=== PATIENT | female | born 1965 | race Hispanic/Latino ===

== ENCOUNTER 2024-06-05 17:03 | Emergency (ER) | payer SELFPAY ==
[~2024-06-05] VITALS: Ht 157.5 cm; Wt 68.0 kg
--- NOTE | 2024-06-05 17:08 | ERN ---
ED Note History of Present Illness Stated Complaint: ABD PAIN Chief Complaint: Abdominal Pain Time Seen by MD: 17:04 Dictation: Patient is a 58-year-old female coming in today with complaints of having epigastric and right upper quadrant pain tenderness she has had for several days. No nausea vomiting no fever no chills no chest pain no back pain. Patient had a CD from a CT that was done at another facility with her and was told she had a hernia and a possible pulmonary lesion. She states she has an appointment next week with the surgeon and the city letter carrier however came in today because she just wanted a 2nd opinion. I asked her if she would have been given anything by her doctor prior to arrival for pain and she told me no. Allergies: Coded Allergies: No Known Drug Allergies (Unverified Allergy, Unknown, 06/05/24) Past Medical History PSYCH History: no pertinent psych hx History: Not Applicable RN Note Reviewed/Agreed w/PFSH: Yes Review of System Dictation CONSTITUTIONAL: Negative except for HPI HEAD/FACE: Negative except for HPI EENT: Negative except for HPI RESPIRATORY: Negative except for HPI GASTROINTESTINAL/ABDOMINAL: Negative except for HPI epigastric and right upper quadrant pain tenderness GENITOURINARY: Negative except for HPI MUSCULOSKELETAL: Negative except for HPI INTEGUMENTARY: Negative except for HPI NEUROLOGICAL/PSYCH: Negative except for HPI HEMATOLOGIC/LYMPHATIC: Negative except for HPI All Systems Negative, Except as noted above. 13 point review of systems assessed and all negative except for above. Initial Vital Sign VS Vital Signs Date Time Temp Pulse Resp B/P (MAP) Pulse Ox O2 Delivery O2 Flow Rate FiO2 06/05/24 17:04 98.1 74 18 138/98 97 06/05/24 17:33 Room Air* 0 21 Physical Exam Dictation Vital Signs reviewed General Appearance: Alert, oriented x 3, my acute distress, well developed, nourished. Head and Face: non-traumatic. Eyes: PERRL, pink conjunctivas, eyelid no trauma, anterior chamber with arcus senilis. Ears: Pinnas intact and no signs of trauma or erythema ear canals clear and no discharge TM no erythema Nose: No discharge, no bleeding. Oropharynx: Mouth normal, tongue pink, pharynx clear,no erythema, tonsils no exudates, no abscesses noted, mucous membrane moist Neck: Supple, non-tender, no thyromegaly, no masses, no JVD, no bruits Breast:Deferred Chest:No tenderness, no crepitus, no paradoxical movement, no retractions Lungs:Clear, well-ventilated, symmetric, no rales, no wheezing, no rhonchi, no stridor, good breath sounds bilaterally Heart: Regular rate, regular rhythm, no murmur, no gallops Vascular: no peripheral edema, Abdomen: Soft, positive bowel sounds, nondistended, no guarding, Mild epigastric tenderness with palpation, no rebound, no masses no hepatomegaly, no splenomegaly, no Gonzalez's sign, no hernias. Negative Gonzalez's Rectal: Deferred Genital: Deferred Neurological: Normal speech, motor function intact, sensory function intact Musculoskeletal: Neck nontender, full range of motion, back nontender, full range of motion, Extremities: nontender, full range of motion Skin: Color pink, dry, no turgor, no rash, no lacerations, no abrasions, no contusions. Lymphatic: Deferred Results (Laboratory/Radiology) Laboratory/Radiology Laboratory Tests Test 06/05/24 17:28 White Blood Count 6.0 K/uL (4.8-10.8) Red Blood Count 4.81 MIL/uL (4.00-5.50) Hemoglobin 14.9 g/dL (12.0-16.0) Hematocrit 43.3 % (36-48) Mean Corpuscular Volume 90.0 fL (79-99) Mean Corpuscular Hemoglobin 31.0 pg (27.0-33.0) Mean Corpuscular Hemoglobin Concent 34.4 g/dL (32.0-36.0) Red Cell Distribution Width 11.4 % (11.0-15.5) Platelet Count 168 K/uL (130-400) Mean Platelet Volume 12.0 fL (7.5-10.5) H Immature Granulocyte % (Auto) 0.2 % (0-1) Neutrophils (%) (Auto) 55.9 % (40.0-77.0) Lymphocytes (%) (Auto) 34.4 % (21.0-51.0) Monocytes (%) (Auto) 7.0 % (3.0-13.0) Eosinophils (%) (Auto) 2.2 % (0.0-8.0) Basophils (%) (Auto) 0.3 % (0.0-5.0) Neutrophils # (Auto) 3.4 K/uL (1.8-7.7) Lymphocytes # (Auto) 2.1 K/uL (1.0-4.8) Monocytes # (Auto) 0.4 K/uL (0.1-1.0) Eosinophils # (Auto) 0.13 K/uL (0.00-0.70) Basophils # (Auto) 0.02 K/uL (0.00-0.20) Absolute Immature Granulocyte (auto 0.01 K/uL (0-1) Nucleated Red Blood Cells 0.0 % (0.0-0.19) Urine Color COLORLESS (YELLOW) Urine Appearance CLEAR (CLEAR) Urine pH 5.5 (5.0-8.0) Urine Specific [place] 1.007 (1.001-1.031) Urine Protein NEGATIVE mg/dL (NEGATIVE) Urine Glucose (UA) NEGATIVE mg/dL (NEGATIVE) Urine Ketones NEGATIVE mg/dL (NEGATIVE) Urine Occult Blood NEGATIVE (NEGATIVE) Urine Nitrate NEGATIVE (NEGATIVE) Urine Bilirubin NEGATIVE mg/dL (NEGATIVE) Urine Urobilinogen 0.2 mg/dL (0.2-1.0) Urine Leukocyte Esterase 250 Demetri/uL (NEGATIVE) H Urine RBC 0-1 /HPF (0-1) Urine WBC 6-10 /HPF (0-1) H Urine Squamous Epithelial Cells FEW /HPF (0-2) Urine Bacteria RARE /HPF (None Seen) Sodium Level 145 mmol/L (136-145) Potassium Level 3.9 mmol/L (3.5-5.1) Chloride Level 107 mmol/L (101-111) Carbon Dioxide Level 30 mmol/L (21-32) Blood Urea Nitrogen 15 mg/dL (7-18) Creatinine 0.8 mg/dL (0.5-1.0) Glomerular Filtration Rate Calc 86 mL/min (>90) Random Glucose 85 mg/dL (70-105) Total Calcium 9.0 mg/dL (8.5-10.1) Lipase 52 U/L (16-77) Labs Reviewed?: Yes ED Course ED Course Orders Procedure Category Date Status Time Cbc With Differential LAB 06/05/24 Complete 17:05 0.9%Nacl 1000ml (Ns PHA 06/05/24 Complete 1000ml) 17:30 Ketorolac PHA 06/05/24 Complete Tromethamine 30mg/Ml 17:30 Lipase LAB 06/05/24 Complete 17:05 Basic Metabolic Panel LAB 06/05/24 Complete 17:05 Urinalysis Profile LAB 06/05/24 Complete 17:05 Famotidine 20mg Vial PHA 06/05/24 Complete (Pepcid 20mg Vial) 17:30 Culture Urine SO 06/05/24 In Process 17:38 Amox/Clav 875/125mg PHA 06/05/24 Transmitted Tab (Augmentin 875-1 18:30 Current Medications Medications (Trade) Dose Ordered Sig/Edgar Route PRN Reason Start Time Stop Time Status Last Admin Dose Admin Famotidine (Pepcid 20mg Vial) 20 mg ONCE ONCE IV 06/05/24 17:30 06/05/24 17:31 DC 06/05/24 17:43 Ketorolac Tromethamine (toRADol) 30 mg ONCE ONCE IVP 06/05/24 17:30 06/05/24 17:31 DC 06/05/24 17:43 Sodium Chloride 1,000 ml @ 0 mls/hr ONCE ONCE IV 06/05/24 17:30 06/05/24 17:31 DC 06/05/24 17:43 Vital Signs Date Time Temp Pulse Resp B/P (MAP) Pulse Ox O2 Delivery O2 Flow Rate FiO2 06/05/24 17:33 97.3 66 20 138/66 100 Room Air* 0 21 06/05/24 17:04 98.1 74 18 138/98 97 1825 PATIENT IN NO PAIN AT THIS TIME, LABS ARE NEGATIVE EXCEPT FOR ACUTE CYSTITIS. WE WILL TREAT WITH [id number] AND PATIENT WILL BE REFERRED BACK TO HER DOCTOR NEXT WEEK FOR FOLLOW UP. Medical Decision Making MDM MDM: DIFFERENTIAL DIAGNOSIS: ABDOMINAL PAIN/UTI/ELECTROLYTE IMBALANCE/DEHYDRA TION/GASTRITIS/PANCREATITIS RATIONALE: TESTS CONSIDERED AND ORDERED SECONDARY TO SHARED DECISION MAKING INCLUDE: LABS PREVIOUS OUTSIDE RECORDS REVIEWED: OLD ER VISITS. REVIEWED RISK OF COMPLICATION AND/OR MORBIDITY OR MORTALITY OF PATIENT MANAGEMENT: NONE MEDICATIONS-PER MEDICATION RECONCILIATION NO NEED FOR HOSPITALIZATION: PATIENT DOES NOT MEET CRITERIA FOR HOSPITALIZATION. NO NEED FOR EMERGENCY MAJOR/MINOR SURGERY: NO THERE ARE NO SOCIAL CONCERNS WITH THIS PATIENT. PRESCRIPTION DRUG MANAGEMENT AUGMENTIN 875 PRESCRIPTIONS WILL INCLUDE SYMPTOMATIC CARE PATIENT'S PRIOR EXTERNAL MEDICAL RECORDS FROM OTHER ER VISITS WERE REVIEWED BY ME INDICATED. PRIOR TESTING AND RESULTS FROM PREVIOUS VISITS WERE REVIEWED. PRIOR TESTS WERE TAKEN INTO ACCOUNT WITH MEDICAL DECISION MAKING AND RESOURCE UTILIZATION, INDEPENDENT HISTORIAN/HISTORIANS WERE USED TO OBTAIN COMPLETE MEDICAL HISTORY. I INDEPENDENTLY INTERPRETED THE TEST THAT WERE PERFORMED, RESULTS WERE REVIEWED BY ME AND CONSIDERED FINDINGS ON RADIOLOGY IF ORDERED. MEDICAL MANAGEMENT AND EXAMINATION INTERPRETATION DISCUSSIONS WERE HAD BY ME WITH OTHER QUALIFIED HEALTHCARE PROFESSIONALS INDICATED FOR THE PATIENT'S CARE. DX & DISP Disposition: Discharge Departure Impression: Primary Impression: Acute cystitis Additional Impression: Abdominal pain Condition: Stable Scripts Ibuprofen (Ibuprofen) 600 Mg Tablet 600 MG PO Q6H PRN for PAIN, #30 TAB Prov: SAIRA BARBOZA NP 06/05/24 Amoxicillin/Potassium Clav (Amox Tr-K Clv 875-125 mg Tab) 875 Mg-125 Mg Tablet 1 EACH PO BID for 5 Days, #10 TAB 0 Refills Prov: SAIRA BARBOZA NP 06/05/24 Additional Instructions: FOLLOW-UP WITH PRIMARY CARE PROVIDER IN 1 TO 2 DAYS. TAKE MEDICATIONS DIREC JOANIE HERE IN THE EMERGENCY ROOM. OKAY TO CONTINUE HOME MEDICATIONS UNLESS OTHERWISE DISCUSSED DURING YOUR VISIT IN THE EMERGENCY ROOM TODAY. RETURN TO YOUR NEAREST EMERGENCY ROOM IF SYMPTOMS WORSEN OR IF THERE IS NO IMPROVEMENT. CALL 911 IF YOU NEED IMMEDIATE ASSISTANCE. TAKE TYLENOL OR MOTRIN [id number] NEEDED AND IF NO CONTRAINDICATIONS ARE PRESENT. INCREASE ORAL HYDRATION. A WOUND CULTURE OR URINE CULTURE WAS ORDERED HERE IN THE EMERGENCY ROOM DEPARTMENT PLEASE FOLLOW-UP WITH PRIMARY CARE PROVIDER AND ADVISE THEM TO GET REPEAT PORTS FROM OUR FACILITY. IF YOU HAD ANY DIANNA WRAP/SPLINTS THAT WERE APPLIED HERE, PLEASE DO NOT REMOVE THEM UNTIL YOU SEE YOUR PRIMARY CARE OR SPECIALTY. TAKE ANTIBIOTICS DIRECTED UNTIL GONE. INCREASE YOUR WATER INTAKE. AND FOLLOW UP WITH YOUR PRIMARY CARE DOCTOR NEXT WEEK. Referrals: ELKE BYRNE DO (PCP) Time of Disposition: 18:29 I have reviewed the case, and I agree with, Diagnosis and Plan SAIRA BARBOZA NP Jun 05, 2024 17:08
[2024-06-05 17:35] LABS: BASOPHILS # (AUTO) 0.02 K/uL (0.00-0.20); BASOPHILS % (AUTO) 0.3 % (0.0-5.0); EOSINOPHILS # (AUTO) 0.13 K/uL (0.00-0.70); EOSINOPHILS % (AUTO) 2.2 % (0.0-8.0); HEMATOCRIT 43.3 % (36-48); IMMATURE GRANULOCYTE ABSOLUTE 0.01 K/uL (0-1); LYMPHOCYTES # (AUTO) 2.1 K/uL (1.0-4.8); LYMPHOCYTES % (AUTO) 34.4 % (21.0-51.0); MEAN CORPUSCULAR HGB CONC 34.4 g/dL (32.0-36.0); MONOCYTES # (AUTO) 0.4 K/uL (0.1-1.0); NEUTROPHILS # (AUTO) 3.4 K/uL (1.8-7.7); NEUTROPHILS % (AUTO) 55.9 % (40.0-77.0); PLATELET COUNT (AUTO) 168 K/uL (130-400); RED BLOOD CELL COUNT(AUTO) 4.81 MIL/uL (4.00-5.50); RED CELL DISTRIBUTION WIDTH 11.4 % (11.0-15.5)
[2024-06-05 17:36] LABS: APPEARANCE,URINE CLEAR (CLEAR); BILIRUBIN,URINE NEGATIVE (NEGATIVE); COLOR,URINE COLORLESS (YELLOW); GLUCOSE, URINE (UA) NEGATIVE (NEGATIVE); KETONES,URINE NEGATIVE (NEGATIVE); LEUKOCYTE ESTERASE ,URINE 250 Leu/uL (NEGATIVE); NITRATE,URINE NEGATIVE (NEGATIVE); OCCULT BLOOD,URINE NEGATIVE (NEGATIVE); PH,URINE 5.5 (5.0-8.0); PROTEIN,URINE NEGATIVE (NEGATIVE); UROBILINOGEN,URINE 0.2 mg/dL (0.2-1.0)
[2024-06-05 17:38] LABS: ADD UA MICROSCOPIC YES
[2024-06-05 17:39] LABS: BACTERIA,URINE RARE /HPF (None Seen); RBC,URINE 0-1 /HPF (0-1); SQUAMOUS EPITHELIAL CELL,UR FEW /HPF (0-2)
[2024-06-05 17:43] LABS: CREATININE 0.8 mg/dL (0.5-1.0); POTASSIUM 3.9 mmol/L (3.5-5.1)
[2024-06-05] MEDS: 0.9%NACL 1000ML 1,000 ML IV ONE (17:43)
[2024-06-05] MEDS: FAMOTIDINE 20MG VIAL IV ONE (17:43)
[2024-06-05] MEDS: ketOROlac 30MG VIAL (30MG/ML) IVP ONE (17:43)
[2024-06-05] MEDS ORDERED: IBUP-2070 PO (18:32)
[2024-06-05] MEDS ORDERED: AMOX1TAB16 PO (18:32)
[2024-06-05 18:38] VITALS: BP 132/74; PULSE 70; RESP 20; TEMP 97.4; O2SAT 100
[2024-06-05] MEDS: AMOX/CLAV 875/125MG TAB PO ONE (18:40)
== END 2024-06-05 18:56 | disposition home or self-care (01) ==
LOC: EDH 17:03
DX: N30.00 Acute cystitis without hematuria (principal)
CPT/HCPCS: 99284; 96374; 96361; 96375; 80048; 83690; 85025; 87086; 81001; 36415; J3490; J7030; J1885

== ENCOUNTER 2025-02-01 18:06 | Emergency (ER) | payer SELFPAY ==
[~2025-02-01] VITALS: Ht 152.4 cm; Wt 68.0 kg
[~2025-02-01 18:06] MED LIST: AMOX1TAB16 PO; IBUP-1492 PO
[2025-02-01 18:51] LABS: IMMATURE GRANULOCYTE ABSOLUTE 0.02 K/uL (0-1); NUCLEATED RED BLOOD CELLS 0.0 % (0.0-0.19); PLATELET COUNT (AUTO) 169 K/uL (130-400); RED BLOOD CELL COUNT(AUTO) 4.56 MIL/uL (4.00-5.50); RED CELL DISTRIBUTION WIDTH 11.6 % (11.0-15.5); WHITE BLOOD COUNT (AUTO) 5.8 K/uL (4.8-10.8)
[2025-02-01 19:04] LABS: CREATININE 0.7 mg/dL (0.5-1.0); GLOMERULAR FILTR. RATE CALC 101.0 mL/min (>90); GLUCOSE,RANDOM 94.0 mg/dL (70-105); SODIUM SERUM 142.0 mmol/L (136-145); UREA NITROGEN, BLOOD 12.0 mg/dL (7-18)
[2025-02-01 19:14] LABS: ASPARTATE AMINOTRANSFERASE 25.0 U/L (10-37); CREATINE KINASE, TOTAL 243.0 U/L (21-232); TOTAL PROTEIN, SERUM 6.8 g/dL (6.0-8.3)
[2025-02-01] MEDS ORDERED: IOHEXOL-350 75 ML VIAL IV ONE (19:32)
[2025-02-01] MEDS: 0.9%NACL 1000ML 1,000 ML IV ONE (19:54)
--- NOTE | 2025-02-01 19:57 | ERN ---
ED Note History of Present Illness Stated Complaint: UPPER ABD PAIN Chief Complaint: Abdominal Pain Time Seen by MD: 18:09 Time Seen by Midlevel: 18:09 Dictation: The patient is a 59-year-old female with a history of cholecystectomy, hypertension, diabetes, hysterectomy who presents to the emergency department with complaints of epigastric abdominal pain onset Saturday. Patient denies any nausea or vomiting, denies any diarrhea, denies any fevers. Reports he was seen by his primary doctor and told her her pancreas was inflamed. Allergies: Coded Allergies: No Known Drug Allergies (Unverified Allergy, Unknown, 06/05/24) Home Meds Active Scripts Ibuprofen (Ibuprofen) 600 Mg Tablet, 600 MG PO Q6H PRN for PAIN, #30 TAB Prov:SAIRA BARBOZA SPRING SETTER 06/05/24 Amoxicillin/Potassium Clav (Amox Tr-K Clv 875-125 mg Tab) 875 Mg-125 Mg Tablet, 1 EACH PO BID for 5 Days, #10 TAB 0 Refills Prov:SAIRA BARBOZA SPRING SETTER 06/05/24 Past Medical History Past Medical History: Diabetes-Type II, GERD, Hypertension, Other Additional Past Medical Hx: HERNIA Surgical History: Hysterectomy, Cholecystectomy, History: Not Applicable RN Note Reviewed/Agreed w/PFSH: Yes Review of System Dictation Constitutional: Negative for fever,chills, and weight loss Eyes: Negative for injury, pain,redness, and discharge ENT: Negative for injury,pain or swelling Cardiovascular: Negative for chest pain, palpitations, and edema Respiratory: Negative for shortness of breath, cough, and wheezing, Abdomen/GI: Negative for nausea, vomiting, diarrhea, and constipation positive for abdominal pain Back: Negative for injury and pain : Negative for injury, bleeding and discharge MS/Extremity: Negative for injury and deformity Skin: Negative for rash, and discoloration Neuro: Negative for headache, weakness, numbness, tingling, and seizure Psych: Negative for suicide ideation, homicidal ideation, and hallucinations Initial Vital Sign VS Vital Signs Date Time Temp Pulse Resp B/P (MAP) Pulse Ox O2 Delivery O2 Flow Rate FiO2 02/01/25 18:07 98.2 95 18 142/88 97 Room Air 0 02/01/25 19:48 21 Physical Exam Dictation Vital Signs reviewed General Appearance: Alert, oriented x 3, no acute distress, well developed, nourished. Head and Face: non-traumatic. Eyes: PERRL, pink conjunctivas, eyelid no trauma, anterior chamber with arcus senilis. Ears: Pinnas intact and no signs of trauma or erythema ear canals clear and no discharge TM no erythema Nose: No discharge, no bleeding. Oropharynx: Mouth normal, tongue pink. pharynx clear,no erythema, tonsils no exudates, no abscesses noted, mucous membrane moist Neck: Supple, non-tender, no thyromegaly, no masses, no JVD, no bruits Breast:Deferred Chest:No tenderness, no crepitus, no paradoxical movement, no retractions Lungs:Clear, well-ventilated, symmetric, no rales, no wheezing, no rhonchi, no stridor, good breath sounds bilaterally Heart: Regular rate, regular rhythm, no murmur, no gallops Vascular: no peripheral edema, Abdomen: Soft, positive bowel sounds, nondistended, no guarding, Epigastric, upper abdominal tenderness no rebound, no masses no hepatomegaly, no splenomegaly, no Gonzalez's sign, no hernias. Rectal: Deferred Genital: Deferred Neurological: Normal speech, motor function intact, sensory function intact Musculoskeletal: Neck nontender, full range of motion, back nontender, full range of motion, Extremities: nontender, full range of motion Skin: Color pink, dry, no turgor, no rash, no lacerations, no abrasions, no contusions. Lymphatic: Deferred Results (Laboratory/Radiology) Laboratory/Radiology Laboratory Tests Test 02/01/25 18:35 White Blood Count 5.8 K/uL (4.8-10.8) Red Blood Count 4.56 MIL/uL (4.00-5.50) Hemoglobin 14.0 g/dL (12.0-16.0) Hematocrit 40.9 % (36-48) Mean Corpuscular Volume 89.7 fL (79-99) Mean Corpuscular Hemoglobin 30.7 pg (27.0-33.0) Mean Corpuscular Hemoglobin Concent 34.2 g/dL (32.0-36.0) Red Cell Distribution Width 11.6 % (11.0-15.5) Platelet Count 169 K/uL (130-400) Mean Platelet Volume 11.8 fL (7.5-10.5) H Immature Granulocyte % (Auto) 0.3 % (0-1) Neutrophils (%) (Auto) 55.1 % (40.0-77.0) Lymphocytes (%) (Auto) 30.7 % (21.0-51.0) Monocytes (%) (Auto) 10.7 % (3.0-13.0) Eosinophils (%) (Auto) 2.9 % (0.0-8.0) Basophils (%) (Auto) 0.3 % (0.0-5.0) Neutrophils # (Auto) 3.2 K/uL (1.8-7.7) Lymphocytes # (Auto) 1.8 K/uL (1.0-4.8) Monocytes # (Auto) 0.6 K/uL (0.1-1.0) Eosinophils # (Auto) 0.17 K/uL (0.00-0.70) Basophils # (Auto) 0.02 K/uL (0.00-0.20) Absolute Immature Granulocyte (auto 0.02 K/uL (0-1) Nucleated Red Blood Cells 0.0 % (0.0-0.19) Sodium Level 142 mmol/L (136-145) Potassium Level 3.7 mmol/L (3.5-5.1) Chloride Level 107 mmol/L (101-111) Carbon Dioxide Level 31 mmol/L (21-32) Blood Urea Nitrogen 12 mg/dL (7-18) Creatinine 0.7 mg/dL (0.5-1.0) Glomerular Filtration Rate Calc 101 mL/min (>90) Random Glucose 94 mg/dL (70-105) Total Calcium 8.5 mg/dL (8.5-10.1) Total Bilirubin 1.0 mg/dL (0.2-1.0) Direct Bilirubin 0.2 mg/dL (0.0-0.3) Aspartate Amino Transf (AST/SGOT) 25 U/L (10-37) Alanine Aminotransferase (ALT/SGPT) 44 U/L (12-78) Alkaline Phosphatase 93 U/L (50-136) Total Creatine Kinase 243 U/L (21-232) H Troponin I High Sensitivity 5 ng/L (4-50) Total Protein 6.8 g/dL (6.0-8.3) Albumin 3.6 g/dL (3.5-5.0) Lipase 43 U/L (16-77) REASON: Abdominal Pain, upper ORDERING PHYSICIAN: MOHINI HOLLINS PROCEDURE: ABD PEL W - CT ABDOMEN/PELVIS W/CONTRAST EXAM: CT Abdomen and Pelvis with IV contrast CLINICAL HISTORY: Abdominal Pain, upper TECHNIQUE: Axial computed tomography images of the abdomen and pelvis with intravenous contrast. CONTRAST: with intravenous contrast. COMPARISON: CT dated October 24, 2016. FINDINGS: LUNG BASES: 2.5 mm calcified granuloma in the right lower lobe. The rest of the lung bases appear clear. No pleural effusions are seen. LIVER: Hepatomegaly; the craniocaudal length of the right lobe of the liver measuring up to 17.5 cm. GALLBLADDER AND BILE DUCTS: The gallbladder is surgically absent. No biliary ductal dilatation is evident. PANCREAS: Unremarkable. SPLEEN: Unremarkable. ADRENAL GLANDS: Unremarkable. KIDNEYS, URETERS, AND BLADDER: The kidneys appear within normal limits. There is no hydronephrosis or hydroureter. No urinary calculi are seen. STOMACH AND BOWEL: Unremarkable appearance of the stomach and bowel. No evidence of bowel obstruction. No evidence suggesting enteritis or colitis. A small and uncomplicated umbilical hernia with fat as content, defect size measuring up to 0.9 cm. APPENDIX: No evidence of acute appendicitis on CT examination. PERITONEUM: No free fluid. No free air. LYMPH NODES: No lymphadenopathy is evident. REPRODUCTIVE: Unremarkable as visualized. VASCULATURE: Mild atherosclerotic wall calcifications in the abdominal aorta. No evidence of abdominal aortic aneurysm. BONES: Mild multilevel degenerative changes in the spine. No aggressive appearing osseous lesion. No acute osseous pathology evident. IMPRESSION: No acute intra-abdominal or pelvic abnormality. /[place] Labs Reviewed?: Yes EKG: (+) rhythm (Sinus rhythm) EKG Comment: Date:02/01/2025 Time:2013 Ventricular rate:64 SD interval:163 QRS duration:100 QT/QTc:454/469 EKG interpretation: Sinus rhythm Reviewed by ED Attending no STEMI ED Course ED Course Orders Procedure Category Date Status Time Cbc With Differential LAB 02/01/25 Complete 18:38 Troponin I High LAB 02/01/25 Complete Sensitivity 18:38 Urinalysis Profile LAB 02/01/25 Logged 18:38 12 Lead Ekg Tracing- EKG 02/01/25 Logged Technical 18:38 0.9%Nacl 1000ml (Ns PHA 02/01/25 Complete 1000ml) 19:00 Morphine 4mg Syg PHA 02/01/25 Complete (Morphine 4mg Syg) 19:00 Ondansetron 4mg Inj PHA 02/01/25 Complete (Zofran 4mg Inj) 19:00 Pantoprazole 40mg Inj PHA 02/01/25 Complete (Protonix 40mg Inj 19:00 Creatine Kinase, Total LAB 02/01/25 Complete 18:38 Lipase LAB 02/01/25 Complete 18:38 Basic Metabolic Panel LAB 02/01/25 Complete 18:38 Hepatic Function Panel LAB 02/01/25 Complete 18:38 Ct Abdomen/Pelvis CT 02/01/25 Resulted W/Contrast 19:22 Iohexol (Omnipaque) PHA 02/01/25 Complete 19:32 Lidocaine Hcl 2% PHA 02/01/25 Complete Viscous (Lidocaine Hcl 21:00 Mag/Alum/Simeth 30ml PHA 02/01/25 Complete (Maalox Plus 30ml) 21:00 Dicyclomine Hcl PHA 02/01/25 Complete (Bentyl 10mg/5ml 21:00 Current Medications Medications (Trade) Dose Ordered Sig/Edgar Route PRN Reason Start Time Stop Time Status Last Admin Dose Admin Al Hydroxide/Mg Hydroxide (MAALox PLUS 30ML) 30 ml ONCE ONCE PO 02/01/25 21:00 02/01/25 21:01 DC 02/01/25 21:01 Dicyclomine HCl (Bentyl 10mg/5ml Syrup) 10 mg ONCE ONCE PO 02/01/25 21:00 02/01/25 21:01 DC 02/01/25 21:00 Iohexol (Omnipaque) 75 ml STK-MED ONCE IV 02/01/25 19:32 02/01/25 19:35 DC Lidocaine HCl (Lidocaine HCl 2% Viscous) 10 ml ONCE ONCE PO 02/01/25 21:00 02/01/25 21:01 DC 02/01/25 21:00 Morphine Sulfate (morPHINE 4MG SYG) 4 mg ONCE ONCE IVP 02/01/25 19:00 02/01/25 19:01 DC 02/01/25 19:56 Ondansetron HCl (zoFRAN 4MG INJ) 4 mg ONCE ONCE IVP 02/01/25 19:00 02/01/25 19:01 DC 02/01/25 19:54 Pantoprazole Sodium (PROTonix 40MG INJ) 40 mg ONCE ONCE IVP 02/01/25 19:00 02/01/25 19:01 DC 02/01/25 19:51 Sodium Chloride 1,000 ml @ 0 mls/hr ONCE ONCE IV 02/01/25 19:00 02/01/25 19:01 DC 02/01/25 19:54 Vital Signs Date Time Temp Pulse Resp B/P (MAP) Pulse Ox O2 Delivery O2 Flow Rate FiO2 02/01/25 19:48 98.4 62 17 130/63 98 Room Air* 0 21 02/01/25 18:07 98.2 95 18 142/88 97 Room Air 0 Medical Decision Making MDM The patient is a 59-year-old female with a history of cholecystectomy, hypertension, diabetes, hysterectomy who presents to the emergency department with complaints of epigastric abdominal pain onset Saturday. Patient denies any nausea or vomiting, denies any diarrhea, denies any fevers. Reports he was seen by his primary doctor and told her her pancreas was inflamed. CBC showed no leukocytosis, no anemia, chemistry showed no electrolyte imbalance, normal renal function, negative lipase, negative troponin CT abdomen showed no acute pathology. On physical exam patient is in no acute distress, nontoxic appearance. Reports medication helps with the pain. At this time patient does feel okay to go home. Patient agreed to follow up with her PCP. CBC showed no leukocytosis, no anemia, chemistry showed no electrolyte imbalance, negative lipase, negative troponin Differential diagnosis: Gastritis, gastroenteritis, pancreatitis, ACS Need for hospitalization: Patient does not meet criteria for hospitalization. There are no social concerns with this patient. DX & DISP Disposition: Discharge Departure Impression: Primary Impression: Gastritis Additional Impression: Abdominal pain Condition: Stable Scripts Pantoprazole Sodium (Pantoprazole Sodium) 20 Mg Tablet. 1 TAB PO DAILY for 30 Days, #30 TAB 0 Refills Prov: MOHINI HOLLINS LINUX ADMIN 02/01/25 Additional Instructions: Please follow up with your primary doctor in 1-2 days. Your labs and your CT were unremarkable. Avoid any foods that exacerbate your pain. FOLLOW-UP WITH PRIMARY CARE PROVIDER IN 1 TO 2 DAYS. TAKE MEDICATIONS DIRECTED HERE IN THE EMERGENCY ROOM. OKAY TO CONTINUE HOME MEDICATIONS UNLESS OTHERWISE DISCUSSED DURING YOUR VISIT IN THE EMERGENCY ROOM TODAY. RETURN TO YOUR NEAREST EMERGENCY ROOM IF SYMPTOMS WORSEN OR IF THERE IS NO IMPROVEMENT. CALL 911 IF YOU NEED IMMEDIATE ASSISTANCE. TAKE TYLENOL [id number] NEEDED AND IF NO CONTRAINDICATIONS ARE PRESENT. INCREASE ORAL HYDRATION. A WOUND CULTURE OR URINE CULTURE WAS ORDERED HERE IN THE EMERGENCY ROOM DEPARTMENT PLEASE FOLLOW-UP WITH PRIMARY CARE PROVIDER AND ADVISE THEM TO GET REPEAT PORTS FROM OUR FACILITY. IF YOU HAD ANY DIANNA WRAP/SPLINTS THAT WERE APPLIED HERE, PLEASE DO NOT REMOVE THEM UNTIL YOU SEE YOUR PRIMARY CARE OR SPECIALTY. Referrals: ELKE BYRNE DO (PCP) Time of Disposition: 21:10 I have reviewed the case, and I agree with, Diagnosis and Plan MOHINI HOLLINS LINUX ADMIN Feb 01, 2025 19:57
--- NOTE | 2025-02-01 20:19 | HMCIMG ---
EXAM: CT Abdomen and Pelvis with IV contrast CLINICAL HISTORY: Abdominal Pain, upper TECHNIQUE: Axial computed tomography images of the abdomen and pelvis with intravenous contrast. CONTRAST: with intravenous contrast. COMPARISON: CT dated October 24, 2016. FINDINGS: LUNG BASES: 2.5 mm calcified granuloma in the right lower lobe. The rest of the lung bases appear clear. No pleural effusions are seen. LIVER: Hepatomegaly; the craniocaudal length of the right lobe of the liver measuring up to 17.5 cm. GALLBLADDER AND BILE DUCTS: The gallbladder is surgically absent. No biliary ductal dilatation is evident. PANCREAS: Unremarkable. SPLEEN: Unremarkable. ADRENAL GLANDS: Unremarkable. KIDNEYS, URETERS, AND BLADDER: The kidneys appear within normal limits. There is no hydronephrosis or hydroureter. No urinary calculi are seen. STOMACH AND BOWEL: Unremarkable appearance of the stomach and bowel. No evidence of bowel obstruction. No evidence suggesting enteritis or colitis. A small and uncomplicated umbilical hernia with fat as content, defect size measuring up to 0.9 cm. APPENDIX: No evidence of acute appendicitis on CT examination. PERITONEUM: No free fluid. No free air. LYMPH NODES: No lymphadenopathy is evident. REPRODUCTIVE: Unremarkable as visualized. VASCULATURE: Mild atherosclerotic wall calcifications in the abdominal aorta. No evidence of abdominal aortic aneurysm. BONES: Mild multilevel degenerative changes in the spine. No aggressive appearing osseous lesion. No acute osseous pathology evident. IMPRESSION: No acute intra-abdominal or pelvic abnormality. /[place]
[2025-02-01] MEDS: DICYCLOMINE HCL 10 MG/5 ML ML PO ONE (21:00)
[2025-02-01] MEDS: LIDOCAINE HCL 2% VISCOUS 15 ML UDCUP PO ONE (21:00)
[2025-02-01] MEDS: MAG/ALUM/SIMETH 30 ML UDCUP PO ONE (21:01)
[2025-02-01] MEDS ORDERED: PANT20TA18 PO (21:11)
[2025-02-01 22:47] VITALS: BP 153/71; PULSE 60; RESP 15; TEMP 98.5; O2SAT 98
--- NOTE | 2025-02-02 06:40 | EKG ---
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
== END 2025-02-01 22:58 | disposition home or self-care (01) ==
LOC: EDH 18:06
DX: K29.70 Gastritis, unspecified, without bleeding (principal); E11.9 Type 2 diabetes mellitus without complications; I10 Essential (primary) hypertension; Z90.49 Acquired absence of other specified parts of digestive tract; Z90.710 Acquired absence of both cervix and uterus; Z98.890 Other specified postprocedural states
CPT/HCPCS: 99285; 74177; 96374; 96361; 96375; 82550; 80076; 84484; 80048; 83690; 85025; 36415; 93005; J7030; J2405; J2270; J2470; Q9967